=== PATIENT | female | born 1970 | race Caucasian/White ===

== ENCOUNTER → 2016-11-08 | Outpatient (CLI) | payer BC ==
[~2016-11-08] MED LIST: FISHOIL PO; IBUPROFEN 200200 M1 PO; IRON325 PO; MEDROLDOSEPACK PO; MULTIVITAMINS PO; ONE-A-DAY WOMENS PO; PERCOCET 10-321 EACH PO; TRAMADOL 50 MG50 MG PO; TRAZODONE HCL50 MG PO; TYLENOL325 MG PO
== END ==
LOC: MRI 14:43
DX: M77.9 Enthesopathy, unspecified (principal); M25.522 Pain in left elbow; M79.632 Pain in left forearm